=== PATIENT | male | born 1955 | race Caucasian/White ===

== ENCOUNTER → 2021-03-19 | Day surgery (SDC) | payer OTHER ==
[2021-03-17 12:15] LABS: BASOPHILS # (AUTO) 0.1 (0.0-0.1); BASOPHILS % 1.4 % (0.0-1.0); EOSINOPHILS # (AUTO) 0.4 (0.0-0.4); HEMATOCRIT 41.5 % (38.2-49.6); HEMOGLOBIN 13.7 g/dL (14.0-18.0); LYMPHOCYTES # (AUTO) 1.7 (1.0-3.2); LYMPHOCYTES % 22.5 % (18.0-39.1); MEAN CORPUSCULAR HEMOGLOBIN 32.1 pg (28-32); MEAN CORPUSCULAR VOLUME 97.2 fL (81-99); MONOCYTES # (AUTO) 0.6 (0.2-0.8); MONOCYTES % 8.4 % (4.4-11.3); NEUTROPHILS # (AUTO) 4.5 (2.1-6.9); NEUTROPHILS % 61.2 % (38.7-80.0); PLATELET COUNT 209 x10e3/uL (140-360); RED BLOOD COUNT 4.27 x10e6/uL (4.3-5.7); RED CELL DISTRIBUTION WIDTH 13.8 % (11.7-14.4)
[~2021-03-19] MED LIST: ALLOPURINOL; ALLOPURINOL300 MG PO; ASA 81 MG; FENOFIBRATE145 MG PO; FOLIC ACID; FOLIC ACID0.4 MG PO; GEMFIBROZIL600 MG; LOSARTAN POTASS25 MG PO; METFORMIN HCL500 MG; METFORMIN HCL500 MG PO
[2021-03-19 12:35] VITALS: BP 121/71
== END | disposition home or self-care (01) ==
LOC: OR 08:00
PROVIDERS: ATTEND Internal Medicine Gastroenterology
DX: K57.30 Diverticulosis of large intestine without perforation or abscess without bleeding (principal); D12.3 Benign neoplasm of transverse colon; K63.89 Other specified diseases of intestine; K64.8 Other hemorrhoids; E66.01 Morbid (severe) obesity due to excess calories; E11.9 Type 2 diabetes mellitus without complications; I10 Essential (primary) hypertension; M10.9 Gout, unspecified; Z01.810 Encounter for preprocedural cardiovascular examination; Z01.812 Encounter for preprocedural laboratory examination; Z20.822 Contact with and (suspected) exposure to COVID-19; Z79.84 Long term (current) use of oral hypoglycemic drugs; Z68.43 Body mass index [BMI] 50.0-59.9, adult; Z80.0 Family history of malignant neoplasm of digestive organs
CPT/HCPCS: 36415 ×2; 45380; 45381; 82948; 85025; 93005; U0002

== ENCOUNTER → 2021-03-26 | Outpatient (CLI) | payer OTHER ==
[~2021-03-26] MED LIST changes: +DIATRIZOATE MEGL/DIATRIZOA SOD 30 ML BTL PO ONE; +IOPAMIDOL 370 MG/ML 200 ML INFUS..BTL INJ ONE; +SODIUM CHLORIDE 0.9% 50ML 50 ML ONE
[2021-03-26 10:52] LABS: CREATININE, SERUM 0.84 mg/dL (0.72-1.25)
== END ==
LOC: CT 09:19
PROVIDERS: ATTEND Internal Medicine Gastroenterology
DX: C18.9 Malignant neoplasm of colon, unspecified (principal); E11.9 Type 2 diabetes mellitus without complications; K57.30 Diverticulosis of large intestine without perforation or abscess without bleeding
CPT/HCPCS: 36415; 74177; 82565; 84520; Q9967

== ENCOUNTER → 2021-04-08 | Outpatient (CLI) | payer OTHER ==
[~2021-04-08] MED LIST changes: -DIATRIZOATE MEGL/DIATRIZOA SOD 30 ML BTL PO ONE
[2021-04-08 12:42] LABS: CREATININE, SERUM 1.06 mg/dL (0.72-1.25)
== END ==
LOC: CT 11:34
PROVIDERS: ATTEND Internal Medicine Hematology & Oncology
DX: R06.02 Shortness of breath (principal); R91.8 Other nonspecific abnormal finding of lung field
CPT/HCPCS: 36415; 71260; 82565; 84520; Q9967

== ENCOUNTER 2021-04-28 09:37 | Inpatient (IN) | payer OTHER ==
[~2021-04-28] VITALS: Ht 183.5 cm; Wt 184.6 kg
[2021-04-28] VITALS (12 sets, daily range): BP systolic 99–144; BP diastolic 52–84
[~2021-04-28 09:37] MED LIST changes: -IOPAMIDOL 370 MG/ML 200 ML INFUS..BTL INJ ONE; -SODIUM CHLORIDE 0.9% 50ML 50 ML ONE
[2021-04-28] MEDS ORDERED: MIDAZOLAM HCL 2 MG/2 ML VIAL ONE (11:25)
[2021-04-28] MEDS ORDERED: IOPAMIDOL 370 MG/ML 200 ML INFUS..BTL INJ ONE (11:26)
[2021-04-28] MEDS ORDERED: SODIUM CHLORIDE 0.9% 1000ML 1,000 ML ONE (11:26)
[2021-04-28] MEDS ORDERED: HEPARIN SOD/SOD CHLORIDE 1,000 ML ONE (11:26)
[2021-04-28] MEDS ORDERED: FENTANYL CITRATE/PF 100MCG/2 ML INJ ONE (11:26)
[2021-04-28] MEDS ORDERED: LIDOCAINE HCL 2% LOCAL 20 ML VIAL ONE (11:26)
[2021-04-28 11:39] LABS: BASOPHILS # (AUTO) 0.1 (0.0-0.1); BASOPHILS % 1.1 % (0.0-1.0); EOSINOPHILS # (AUTO) 0.3 (0.0-0.4); EOSINOPHILS % 3.9 % (0.0-6.0); HEMATOCRIT 41.8 % (38.2-49.6); HEMOGLOBIN 13.7 g/dL (14.0-18.0); LYMPHOCYTES # (AUTO) 1.7 (1.0-3.2); MEAN CORPUSCULAR HEMOGLOBIN 31.9 pg (28-32); MEAN CORPUSCULAR HGB CONC 32.8 g/dL (31-35); MEAN CORPUSCULAR VOLUME 97.2 fL (81-99); MONOCYTES # (AUTO) 0.8 (0.2-0.8); MONOCYTES % 10.4 % (4.4-11.3); NEUTROPHILS # (AUTO) 4.4 (2.1-6.9); NEUTROPHILS % 61.2 % (38.7-80.0); PLATELET COUNT 211 x10e3/uL (140-360); RED CELL DISTRIBUTION WIDTH 13.4 % (11.7-14.4)
[2021-04-28 11:48] LABS: INR 0.92; PARTIAL THROMBOPLASTIN TIME 25.8 seconds (23.8-35.5); PROTHROMBIN TIME 13.1 seconds (11.9-14.5)
[2021-04-28 11:54] LABS: ANION GAP 15.4 mmol/L (8-16); CALCIUM 9.4 mg/dL (8.4-10.2); CREATININE, SERUM 1.01 mg/dL (0.72-1.25); POTASSIUM 4.4 mmol/L (3.5-5.1)
[2021-04-28] MEDS ORDERED: SODIUM CHLORIDE 0.9% 1000ML 1,000 ML IV SCH (12:15)
[2021-04-28] MEDS: DEXTROSE 5%/0.9% SOD CHL 1,000 ML IV SCH (12:31)
[2021-04-28] MEDS ORDERED: ATORVASTATIN CA10 MG PO (16:10)
[2021-04-28] MEDS ORDERED: XARELTO20 MG PO (16:10)
[2021-04-28] MEDS ORDERED: PANTOPRAZOLE SO40 MG PO (16:10)
[2021-04-28] MEDS ORDERED: FOLIC ACID0.4 MG PO (16:11)
[2021-04-28] MEDS: ATORVASTATIN 10 MG TAB PO SCH (20:37)
[2021-04-28] MEDS: MAGNESIUM HYDROXIDE 30 ML UDC PO SCH (20:37)
[2021-04-29] VITALS (8 sets, daily range): BP systolic 105–143; BP diastolic 47–76
[2021-04-29] MEDS: DEXTROSE 5%/0.9% SOD CHL 1,000 ML IV SCH ×2 (01:43→15:15)
[2021-04-29] MEDS ORDERED: ALLOPURINOL 300 MG TAB PO SCH (09:00)
[2021-04-29] MEDS ORDERED: FOLIC ACID 1 MG TAB PO SCH (09:00)
[2021-04-29] MEDS ORDERED: LOSARTAN POTASSIUM 25 MG TAB PO SCH (09:00)
[2021-04-29] MEDS ORDERED: FOLIC ACID 0.4 MG PO SCH (09:00)
[2021-04-29] MEDS ORDERED: FENOFIBRATE 134 MG TAB PO SCH (09:00)
[2021-04-29] MEDS: ERYTHROMYCIN 500 MG TAB PO SCH ×3 (12:38→22:44)
[2021-04-29] MEDS: NEOMYCIN SULFATE 500 MG TAB PO SCH ×3 (12:38→22:44)
[2021-04-29] MEDS ORDERED: ENOXAPARIN SODIUM INJ 100 MG/ML SYR SC ONE (13:45)
[2021-04-29] MEDS: MAGNESIUM HYDROXIDE 30 ML UDC PO SCH (20:51)
[2021-04-29] MEDS: ATORVASTATIN 10 MG TAB PO SCH (20:51)
[2021-04-30] VITALS (9 sets, daily range): BP systolic 119–160; BP diastolic 69–96
[2021-04-30] MEDS: DEXTROSE 5%/0.9% SOD CHL 1,000 ML IV SCH (05:08)
[2021-04-30] MEDS ORDERED: MIDAZOLAM HCL 2 MG/2 ML VIAL ONE (12:17)
[2021-04-30] MEDS ORDERED: FENTANYL CITRATE/PF 100MCG/2 ML INJ ONE (12:17)
[2021-04-30] MEDS ORDERED: ACETAMINOPHEN 1000 MG/100 ML 100 ML IV ONE (13:50)
[2021-04-30] MEDS ORDERED: ACETAMINOPHEN 1000 MG/100 ML IV PRN (16:30)
[2021-04-30] MEDS ORDERED: NALOXONE HCL INJ 0.4 MG/ML AMP IV PRN (16:30)
[2021-04-30] MEDS ORDERED: ONDANSETRON HCL INJ 2MG/ML 2ML 2 MG/ML VIAL IV PRN (16:30)
[2021-04-30] MEDS ORDERED: HYDROMORPHONE 0.2MG/ML-SOD CHL 30ML PCA SYRINGE IV PRN (16:30)
[2021-04-30] MEDS ORDERED: DEXTROSE 50% SYRINGE 50 ML IV PRN (16:45)
[2021-04-30] MEDS: INSULIN REGULAR, HUMAN 100 UNIT/1 ML SQ SCH (18:00)
[2021-04-30] MEDS: SODIUM CHLORIDE 0.9% 250ML IRRIG IR SCH ×2 (18:02→20:30)
[2021-04-30] MEDS: SODIUM CHLORIDE 0.9% 1000ML 1,000 ML IV SCH ×2 (18:02→23:10)
[2021-04-30] MEDS: CEFTRIAXONE 2 GM in SODIUM CHLORIDE 0.9% 100 ML IV SCH (18:02)
[2021-04-30] MEDS: ENOXAPARIN SOD INJ 40 MG/0.4 ML SYR SC SCH (18:04)
[2021-05-01] VITALS (24 sets, daily range): BP systolic 110–161; BP diastolic 69–93
[2021-05-01] MEDS: SODIUM CHLORIDE 0.9% 250ML IRRIG IR SCH ×6 (00:30→20:01)
[2021-05-01 04:59] LABS: BASOPHILS % 0.3 % (0.0-1.0); EOSINOPHILS # (AUTO) 0.1 (0.0-0.4); EOSINOPHILS % 0.7 % (0.0-6.0); HEMATOCRIT 38.7 % (38.2-49.6); HEMOGLOBIN 12.7 g/dL (14.0-18.0); LYMPHOCYTES # (AUTO) 1.2 (1.0-3.2); LYMPHOCYTES % 12.7 % (18.0-39.1); MEAN CORPUSCULAR HEMOGLOBIN 31.8 pg (28-32); MEAN CORPUSCULAR HGB CONC 32.8 g/dL (31-35); MONOCYTES # (AUTO) 0.9 (0.2-0.8); MONOCYTES % 9.5 % (4.4-11.3); NEUTROPHILS # (AUTO) 7.4 (2.1-6.9); NEUTROPHILS % 76.4 % (38.7-80.0); PLATELET COUNT 190 x10e3/uL (140-360); RED BLOOD COUNT 3.99 x10e6/uL (4.3-5.7); RED CELL DISTRIBUTION WIDTH 13.2 % (11.7-14.4)
[2021-05-01 05:26] LABS: ANION GAP 14.4 mmol/L (8-16); CALCIUM 8.6 mg/dL (8.4-10.2); CREATININE, SERUM 0.98 mg/dL (0.72-1.25); POTASSIUM 4.4 mmol/L (3.5-5.1)
[2021-05-01] MEDS: SODIUM CHLORIDE 0.9% 1000ML 1,000 ML IV SCH ×3 (05:47→20:01)
[2021-05-01] MEDS: INSULIN REGULAR, HUMAN 100 UNIT/1 ML SQ SCH ×5 (05:48→23:20)
[2021-05-01] MEDS ORDERED: SEVOFLURANE INHAL SOLN 250 ML PEN BTL ONE (18:34)
[2021-05-01] MEDS ORDERED: LIDOCAINE HCL 2% LOCAL INJ 5 ML SDV VIAL INJ ONE (18:34)
[2021-05-01] MEDS ORDERED: ROCURONIUM BROMIDE 10 MG/ML 5ML VIAL IV ONE (18:34)
[2021-05-01] MEDS ORDERED: POVIDONE IODINE 0.05% 0.05 % ML PO ONE (18:34)
[2021-05-01] MEDS ORDERED: PROPOFOL IV EMULSION 10 MG/ML 20 ML VIAL ONE (18:34)
[2021-05-01] MEDS ORDERED: ONDANSETRON HCL INJ 2MG/ML 2ML 2 MG/ML VIAL ONE (18:34)
[2021-05-01] MEDS: CEFTRIAXONE 2 GM in SODIUM CHLORIDE 0.9% 100 ML IV SCH (18:40)
[2021-05-02] VITALS (14 sets, daily range): BP systolic 111–166; BP diastolic 58–85
[2021-05-02] MEDS: SODIUM CHLORIDE 0.9% 1000ML 1,000 ML IV SCH ×3 (02:51→15:02)
[2021-05-02 04:59] LABS: BASOPHILS # (AUTO) 0.1 (0.0-0.1); BASOPHILS % 0.6 % (0.0-1.0); EOSINOPHILS # (AUTO) 0.2 (0.0-0.4); EOSINOPHILS % 2.8 % (0.0-6.0); HEMATOCRIT 36.5 % (38.2-49.6); HEMOGLOBIN 11.6 g/dL (14.0-18.0); LYMPHOCYTES # (AUTO) 1.3 (1.0-3.2); LYMPHOCYTES % 14.7 % (18.0-39.1); MEAN CORPUSCULAR HEMOGLOBIN 32.1 pg (28-32); MEAN CORPUSCULAR HGB CONC 31.8 g/dL (31-35); MEAN CORPUSCULAR VOLUME 101.1 fL (81-99); MONOCYTES # (AUTO) 0.9 (0.2-0.8); MONOCYTES % 10.3 % (4.4-11.3); NEUTROPHILS # (AUTO) 6.2 (2.1-6.9); NEUTROPHILS % 71.3 % (38.7-80.0); PLATELET COUNT 178 x10e3/uL (140-360); RED BLOOD COUNT 3.61 x10e6/uL (4.3-5.7); RED CELL DISTRIBUTION WIDTH 13.6 % (11.7-14.4)
[2021-05-02 05:20] LABS: CALCIUM 8.4 mg/dL (8.4-10.2); CREATININE, SERUM 0.95 mg/dL (0.72-1.25)
[2021-05-02] MEDS: INSULIN REGULAR, HUMAN 100 UNIT/1 ML SQ SCH ×3 (06:00→18:00)
[2021-05-02] MEDS ORDERED: HYDROMORPHONE 0.2MG/ML-SOD CHL 30ML PCA SYRINGE IV PRN (14:00)
[2021-05-02] MEDS: ENOXAPARIN SOD INJ 40 MG/0.4 ML SYR SC SCH (16:26)
[2021-05-02] MEDS: CEFTRIAXONE 2 GM in SODIUM CHLORIDE 0.9% 100 ML IV SCH (17:20)
[2021-05-02] MEDS ORDERED: BISACODYL 10 MG SUPP PR ONE (20:30)
[2021-05-02] MEDS: BISACODYL 10 MG SUPP PR SCH (21:00)
[2021-05-03] MEDS: SODIUM CHLORIDE 0.9% 1000ML 1,000 ML IV SCH ×3 (02:28→18:17)
[2021-05-03 04:00] VITALS: BP 108/62
[2021-05-03 05:47] LABS: BASOPHILS # (AUTO) 0.1 (0.0-0.1); BASOPHILS % 0.7 % (0.0-1.0); EOSINOPHILS # (AUTO) 0.3 (0.0-0.4); HEMATOCRIT 32.4 % (38.2-49.6); HEMOGLOBIN 10.3 g/dL (14.0-18.0); LYMPHOCYTES # (AUTO) 1.2 (1.0-3.2); LYMPHOCYTES % 15.1 % (18.0-39.1); MEAN CORPUSCULAR HEMOGLOBIN 32.1 pg (28-32); MEAN CORPUSCULAR HGB CONC 31.8 g/dL (31-35); MEAN CORPUSCULAR VOLUME 100.9 fL (81-99); MONOCYTES # (AUTO) 0.7 (0.2-0.8); MONOCYTES % 8.9 % (4.4-11.3); NEUTROPHILS # (AUTO) 5.4 (2.1-6.9); NEUTROPHILS % 70.9 % (38.7-80.0); PLATELET COUNT 160 x10e3/uL (140-360); RED BLOOD COUNT 3.21 x10e6/uL (4.3-5.7); RED CELL DISTRIBUTION WIDTH 13.3 % (11.7-14.4)
[2021-05-03] MEDS: INSULIN REGULAR, HUMAN 100 UNIT/1 ML SQ SCH ×4 (06:00→18:00)
[2021-05-03 06:02] LABS: ANION GAP 13.6 mmol/L (8-16); CALCIUM 8.5 mg/dL (8.4-10.2); CREATININE, SERUM 0.81 mg/dL (0.72-1.25); POTASSIUM 3.6 mmol/L (3.5-5.1)
[2021-05-03 08:50] VITALS: BP 107/63
[2021-05-03] MEDS: BISACODYL 10 MG SUPP PR SCH (09:00)
[2021-05-03 09:37] VITALS: BP 107/63
[2021-05-03 13:03] VITALS: BP 130/81
[2021-05-03] MEDS: ENOXAPARIN SOD INJ 40 MG/0.4 ML SYR SC SCH (17:00)
[2021-05-03 17:03] VITALS: BP 105/89
[2021-05-03] MEDS: CEFTRIAXONE 2 GM in SODIUM CHLORIDE 0.9% 100 ML IV SCH (18:00)
[2021-05-03 20:25] VITALS: BP 127/81
[2021-05-04 00:25] VITALS: BP 146/63
[2021-05-04] MEDS: SODIUM CHLORIDE 0.9% 1000ML 1,000 ML IV SCH ×3 (00:45→20:32)
[2021-05-04 03:55] VITALS: BP 137/76
[2021-05-04] MEDS: INSULIN REGULAR, HUMAN 100 UNIT/1 ML SQ SCH ×5 (05:51→20:31)
[2021-05-04] MEDS ORDERED: BISACODYL 10 MG SUPP PR ONE (06:00)
[2021-05-04 07:54] VITALS: BP 147/89
[2021-05-04 09:00] VITALS: BP 147/89
[2021-05-04] MEDS ORDERED: HYDROMORPHONE 1MG/1ML INJ IV PRN (10:30)
[2021-05-04] MEDS ORDERED: HYDROCODONE/APAP 7.5MG-325MG 1 EA TAB PO PRN (10:30)
[2021-05-04] MEDS ORDERED: POTASSIUM CHLORIDE 20 MEQ TAB CR PO ONE ×2 (10:45→14:45)
[2021-05-04 11:52] VITALS: BP 154/85
[2021-05-04 13:08] LABS: INR 0.96; PROTHROMBIN TIME 13.5 seconds (11.9-14.5)
[2021-05-04 15:52] VITALS: BP 130/63
[2021-05-04] MEDS: ENOXAPARIN SOD INJ 40 MG/0.4 ML SYR SC SCH (17:17)
[2021-05-04] MEDS: WARFARIN SOD 5 MG TAB PO SCH (17:17)
[2021-05-04] MEDS: CEFTRIAXONE 2 GM in SODIUM CHLORIDE 0.9% 100 ML IV SCH (17:17)
[2021-05-05] VITALS (7 sets, daily range): BP systolic 119–156; BP diastolic 65–97
[2021-05-05 05:36] LABS: BASOPHILS # (AUTO) 0.1 (0.0-0.1); BASOPHILS % 0.9 % (0.0-1.0); EOSINOPHILS # (AUTO) 0.4 (0.0-0.4); EOSINOPHILS % 6.8 % (0.0-6.0); HEMATOCRIT 31.4 % (38.2-49.6); HEMOGLOBIN 10.3 g/dL (14.0-18.0); LYMPHOCYTES # (AUTO) 1.1 (1.0-3.2); LYMPHOCYTES % 19.5 % (18.0-39.1); MEAN CORPUSCULAR HEMOGLOBIN 31.9 pg (28-32); MEAN CORPUSCULAR HGB CONC 32.8 g/dL (31-35); MEAN CORPUSCULAR VOLUME 97.2 fL (81-99); MONOCYTES # (AUTO) 0.5 (0.2-0.8); MONOCYTES % 8.8 % (4.4-11.3); NEUTROPHILS # (AUTO) 3.6 (2.1-6.9); NEUTROPHILS % 63.6 % (38.7-80.0); PLATELET COUNT 172 x10e3/uL (140-360); RED BLOOD COUNT 3.23 x10e6/uL (4.3-5.7); RED CELL DISTRIBUTION WIDTH 13.2 % (11.7-14.4)
[2021-05-05 05:44] LABS: INR 0.97; PROTHROMBIN TIME 13.7 seconds (11.9-14.5)
[2021-05-05 05:51] LABS: ALBUMIN 2.7 g/dL (3.5-5.0); ALBUMIN/GLOBULIN RATIO 0.9 (0.8-2.0); ANION GAP 13.4 mmol/L (8-16); CALCIUM 8.4 mg/dL (8.4-10.2); CREATININE, SERUM 0.75 mg/dL (0.72-1.25); POTASSIUM 3.4 mmol/L (3.5-5.1)
[2021-05-05] MEDS: INSULIN REGULAR, HUMAN 100 UNIT/1 ML SQ SCH ×4 (07:30→21:00)
[2021-05-05] MEDS ORDERED: RIVAROXABAN 20 MG TABLET PO SCH (09:00)
[2021-05-05] MEDS ORDERED: ONDANSETRON HCL 4 MG ORAL DISINTEGRATING TAB PO PRN (09:45)
[2021-05-05] MEDS: SODIUM CHLORIDE 0.9% 1000ML 1,000 ML IV SCH (11:04)
[2021-05-05] MEDS ORDERED: ENOXAPARIN SOD INJ 40 MG/0.4 ML SYR SC SCH (17:00)
[2021-05-05] MEDS: WARFARIN SOD 5 MG TAB PO SCH (17:52)
[2021-05-05] MEDS: CEFTRIAXONE 2 GM in SODIUM CHLORIDE 0.9% 100 ML IV SCH (18:03)
[2021-05-06] VITALS: BP 140/72
[2021-05-06 04:00] VITALS: BP 136/50
[2021-05-06] MEDS: SODIUM CHLORIDE 0.9% 1000ML 1,000 ML IV SCH (04:56)
[2021-05-06 05:31] LABS: INR 0.93; PROTHROMBIN TIME 13.2 seconds (11.9-14.5)
[2021-05-06] MEDS: INSULIN REGULAR, HUMAN 100 UNIT/1 ML SQ SCH ×2 (07:30→11:30)
[2021-05-06 08:25] VITALS: BP 189/87
[2021-05-06] MEDS ORDERED: ENOXAPARIN SOD INJ 40 MG/0.4 ML SYR SC SCH (09:00)
[2021-05-06 12:22] VITALS: BP 96/69
[2021-05-06 12:23] VITALS: BP 167/95
[2021-05-06] MEDS ORDERED: Warfarin Sod PO (14:45)
[2021-05-06] MEDS ORDERED: ENOXAPARIN80 MG/0.8 SC (14:45)
[2021-05-06 15:47] VITALS: BP 153/84
[2021-05-06] MEDS ORDERED: PANTOPRAZOLE SOD 40 MG TABEC PO SCH (16:30)
== END 2021-05-06 16:11 | disposition home or self-care (01) | DRG 329 ==
LOC: MED/SURG 10:27 → ICU 04-30 15:53 → MED/SURG 05-02 16:57
PROVIDERS: ADMIT Internal Medicine Pulmonary Disease; ATTEND Internal Medicine Pulmonary Disease
PROC: 06H03DZ Insertion of Intraluminal Device into Inferior Vena Cava, Percutaneous Approach (ICD-10-PCS; principal; 2021-04-28)
PROC: 0DTN0ZZ Resection of Sigmoid Colon, Open Approach (ICD-10-PCS; 2021-04-30)
PROC: 0DBP0ZZ Excision of Rectum, Open Approach (ICD-10-PCS; 2021-04-30)
DX: C18.7 Malignant neoplasm of sigmoid colon (principal); I26.99 Other pulmonary embolism without acute cor pulmonale; Z68.43 Body mass index [BMI] 50.0-59.9, adult; D68.69 Other thrombophilia; I10 Essential (primary) hypertension; E78.2 Mixed hyperlipidemia; E11.9 Type 2 diabetes mellitus without complications; E66.01 Morbid (severe) obesity due to excess calories; E74.39 Other disorders of intestinal carbohydrate absorption; Z86.718 Personal history of other venous thrombosis and embolism; Z80.0 Family history of malignant neoplasm of digestive organs; Z79.01 Long term (current) use of anticoagulants; Z72.0 Tobacco use; Z15.09 Genetic susceptibility to other malignant neoplasm; Z20.822 Contact with and (suspected) exposure to COVID-19
CPT/HCPCS: 36415; 37191; 71045; 76937; 80048; 80053; 82378; 82948; 85025; 85610; 85730; 86850; 86900; 88309; 88342; 93005; 93306; 94799; 97139; 99152; C1760; C1769; C1880; C1894; J0694; J0696; J1650; J1817; J2001; J2250; J2405; J3010; J7030; J7042; J7050; Q9967; U0002

== ENCOUNTER → 2022-08-26 | Day surgery (SDC) | payer OTHER ==
[2022-08-21 12:25] LABS: BASOPHILS # (AUTO) 0.1 (0.0-0.1); BASOPHILS % 1.2 % (0.0-1.0); EOSINOPHILS # (AUTO) 0.3 (0.0-0.4); EOSINOPHILS % 4.4 % (0.0-6.0); HEMATOCRIT 41.3 % (38.2-49.6); HEMOGLOBIN 13.4 g/dL (14.0-18.0); LYMPHOCYTES % 29.5 % (18.0-39.1); MEAN CORPUSCULAR HEMOGLOBIN 31.8 pg (28-32); MEAN CORPUSCULAR HGB CONC 32.4 g/dL (31-35); MEAN CORPUSCULAR VOLUME 98.1 fL (81-99); MONOCYTES # (AUTO) 0.7 (0.2-0.8); MONOCYTES % 9.6 % (4.4-11.3); NEUTROPHILS # (AUTO) 3.7 (2.1-6.9); NEUTROPHILS % 54.6 % (38.7-80.0); PLATELET COUNT 209 x10e3/uL (140-360); RED BLOOD COUNT 4.21 x10e6/uL (4.3-5.7); RED CELL DISTRIBUTION WIDTH 13.5 % (11.7-14.4)
[~2022-08-26] MED LIST changes: +ATORVASTATIN CA10 MG PO; +ENOXAPARIN80 MG/0.8 SC; +GLYCOPYRROLATE INJ 0.2 MG/ML VIAL ONE; +LACTATED RINGER'S 1,000 ML ONE; +LIDOCAINE HCL 2% LOCAL INJ 5 ML SDV VIAL INJ ONE; +PANTOPRAZOLE SO40 MG PO; +POVIDONE IODINE 0.05% 0.05 % ML PO ONE; +PROPOFOL IV EMULSION 10 MG/ML 20 ML VIAL ONE; +PROPOFOL IV EMULSION 50 ML IV ONE; +Warfarin Sod PO; +XARELTO20 MG PO
[2022-08-26 10:16] LABS: INR 0.99; PROTHROMBIN TIME 13.6 seconds (11.9-14.5)
[2022-08-26 10:17] LABS: PARTIAL THROMBOPLASTIN TIME 26.2 seconds (23.8-35.5)
[2022-08-26 12:25] VITALS: BP 118/73
== END | disposition home or self-care (01) ==
LOC: OR 08:51
PROVIDERS: ATTEND Internal Medicine Gastroenterology
DX: K57.30 Diverticulosis of large intestine without perforation or abscess without bleeding (principal); Z85.038 Personal history of other malignant neoplasm of large intestine; D12.3 Benign neoplasm of transverse colon; K64.8 Other hemorrhoids; E11.9 Type 2 diabetes mellitus without complications; E66.01 Morbid (severe) obesity due to excess calories; K76.0 Fatty (change of) liver, not elsewhere classified; M10.9 Gout, unspecified; E78.00 Pure hypercholesterolemia, unspecified; Z01.810 Encounter for preprocedural cardiovascular examination; Z01.812 Encounter for preprocedural laboratory examination; Z79.84 Long term (current) use of oral hypoglycemic drugs; Z79.01 Long term (current) use of anticoagulants; Z79.899 Other long term (current) drug therapy; Z80.0 Family history of malignant neoplasm of digestive organs
CPT/HCPCS: 36415 ×2; 45380; 45385; 82948; 85025; 85610; 85730; 88305; 93005; J2001; J2704 ×2; J7121; 45384; 88304

== ENCOUNTER → 2024-08-18 | Outpatient (REF) | payer MEDICARE ==
[~2024-08-18] MED LIST changes: +ALLERGY MEDICAT25 MG PO; +ENOXAPARIN120 MG/0.8; -GLYCOPYRROLATE INJ 0.2 MG/ML VIAL ONE; -LACTATED RINGER'S 1,000 ML ONE; -LIDOCAINE HCL 2% LOCAL INJ 5 ML SDV VIAL INJ ONE; +OZEMPIC1 MG/0.71; -POVIDONE IODINE 0.05% 0.05 % ML PO ONE; -PROPOFOL IV EMULSION 10 MG/ML 20 ML VIAL ONE; -PROPOFOL IV EMULSION 50 ML IV ONE; +WARFARIN SODIUM3 MG PO
== END ==
LOC: RAD 10:17
PROVIDERS: ATTEND Anesthesiology
DX: Z01.810 Encounter for preprocedural cardiovascular examination (principal)
CPT/HCPCS: 93306

== ENCOUNTER → 2024-08-23 | Day surgery (SDC) | payer MEDICARE ==
[2024-08-18 10:07] LABS: BASOPHILS # (AUTO) 0.1 (0.0-0.1); EOSINOPHILS # (AUTO) 0.4 (0.0-0.4); EOSINOPHILS % 5.5 % (0.0-6.0); HEMATOCRIT 41.2 % (38.2-49.6); HEMOGLOBIN 13.9 g/dL (14.0-18.0); LYMPHOCYTES # (AUTO) 2.1 (1.0-3.2); MEAN CORPUSCULAR HEMOGLOBIN 32.3 pg (28-32); MEAN CORPUSCULAR HGB CONC 33.7 g/dL (31-35); MEAN CORPUSCULAR VOLUME 95.8 fL (81-99); MONOCYTES # (AUTO) 0.7 (0.2-0.8); MONOCYTES % 10.2 % (4.4-11.3); NEUTROPHILS # (AUTO) 3.7 (2.1-6.9); NEUTROPHILS % 52.9 % (38.7-80.0); PLATELET COUNT 240 x10e3/uL (140-360); RED CELL DISTRIBUTION WIDTH 13.7 % (11.7-14.4); WHITE BLOOD COUNT 7.07 x10e3/uL (4.8-10.8)
[~2024-08-23] MED LIST changes: +BENZOCAINE/TETRACAINE/BUTAMBEN AERO SPRAY 56 GM CAN ONE; +FENTANYL CITRATE/PF 100MCG/2 ML INJ ONE; +LACTATED RINGER'S 1,000 ML ONE; +LIDOCAINE HCL 2% LOCAL INJ 5 ML SDV VIAL INJ ONE; +MIDAZOLAM HCL 2 MG/2 ML VIAL ONE; +PROPOFOL IV EMULSION 10 MG/ML 20 ML VIAL ONE; +PROPOFOL IV EMULSION 50 ML IV ONE
[2024-08-23 10:01] LABS: INR 0.95; PROTHROMBIN TIME 13.3 seconds (11.9-14.5)
[2024-08-23 10:02] LABS: PARTIAL THROMBOPLASTIN TIME 28.7 seconds (23.8-35.5)
[2024-08-23 10:55] VITALS: PULSE 82; RESP 18; O2SAT 96
[2024-08-23 11:49] VITALS: TEMP 98
[2024-08-23 12:20] VITALS: BP 111/67
[2024-08-23 14:08] VITALS: PULSE 71; RESP 16; O2SAT 96
[2024-08-23] MEDS: ALBUTEROL/IPRATROPIUM 3 ML NEB NEB ONE (14:08)
== END | disposition home or self-care (01) ==
LOC: OR 08:36
PROVIDERS: ATTEND Internal Medicine Gastroenterology
DX: K21.9 Gastro-esophageal reflux disease without esophagitis (principal); D12.8 Benign neoplasm of rectum; Z85.038 Personal history of other malignant neoplasm of large intestine; K29.50 Unspecified chronic gastritis without bleeding; K44.9 Diaphragmatic hernia without obstruction or gangrene; Z71.3 Dietary counseling and surveillance; K76.0 Fatty (change of) liver, not elsewhere classified; I10 Essential (primary) hypertension; I25.10 Atherosclerotic heart disease of native coronary artery without angina pectoris; E11.9 Type 2 diabetes mellitus without complications; E66.01 Morbid (severe) obesity due to excess calories; Z78.9 Other specified health status; F17.220 Nicotine dependence, chewing tobacco, uncomplicated; Z01.810 Encounter for preprocedural cardiovascular examination; Z01.812 Encounter for preprocedural laboratory examination; Z79.01 Long term (current) use of anticoagulants; Z79.85 Long-term (current) use of injectable non-insulin antidiabetic drugs; Z79.899 Other long term (current) drug therapy; Z86.711 Personal history of pulmonary embolism; Z80.0 Family history of malignant neoplasm of digestive organs
CPT/HCPCS: 36415 ×2; 43239; 45385; 82948; 85025; 85610; 85730; 88305; 88342; 93005; 94799; J2003; J2250; J2704 ×2; J3010; J7121; 45378

== ENCOUNTER 2025-02-01 19:17 | Emergency (ER) | payer MEDICARE ==
[~2025-02-01] VITALS: Ht 193 cm; Wt 188.2 kg
[~2025-02-01 19:17] MED LIST changes: -BENZOCAINE/TETRACAINE/BUTAMBEN AERO SPRAY 56 GM CAN ONE; -FENTANYL CITRATE/PF 100MCG/2 ML INJ ONE; -LACTATED RINGER'S 1,000 ML ONE; -LIDOCAINE HCL 2% LOCAL INJ 5 ML SDV VIAL INJ ONE; -MIDAZOLAM HCL 2 MG/2 ML VIAL ONE; -PROPOFOL IV EMULSION 10 MG/ML 20 ML VIAL ONE; -PROPOFOL IV EMULSION 50 ML IV ONE
[2025-02-01 20:20] VITALS: TEMP 98.1
[2025-02-01 20:37] LABS: BASOPHILS % 0.6 % (0.0-1.0); EOSINOPHILS % 2.0 % (0.0-6.0); LYMPHOCYTES % 12.9 % (18.0-39.1); MONOCYTES % 7.0 % (4.4-11.3); NEUTROPHILS % 77.2 % (38.7-80.0); RED CELL DISTRIBUTION WIDTH 13.9 % (11.7-14.4)
[2025-02-01 20:43] LABS: LEUKOCYTE ESTERASE ,URINE LARGE (NEGATIVE); PROTEIN,URINE DIPSTICK >=300 (NEGATIVE)
[2025-02-01 20:44] LABS: URINE UROBILINOGEN >=8 mg/dL (0.2 - 1)
[2025-02-01 20:56] LABS: EST GLOMERULAR FILTRATION RATE 81.0 ML/MIN (>=60)
[2025-02-01] MEDS ORDERED: IOPAMIDOL 370 MG/ML 100 ML INFUS..BTL INJ ONE (21:12)
[2025-02-01] MEDS ORDERED: CIPRO500 MG PO (23:48)
[2025-02-02 00:23] VITALS: PULSE 71; RESP 16; O2SAT 97
== END 2025-02-02 00:25 | disposition home or self-care (01) ==
LOC: ER 19:22
DX: N30.91 Cystitis, unspecified with hematuria (principal); I10 Essential (primary) hypertension; E11.9 Type 2 diabetes mellitus without complications; I25.10 Atherosclerotic heart disease of native coronary artery without angina pectoris; R91.8 Other nonspecific abnormal finding of lung field; E78.5 Hyperlipidemia, unspecified; K21.9 Gastro-esophageal reflux disease without esophagitis; Z86.711 Personal history of pulmonary embolism
CPT/HCPCS: 36415; 74177; 80053; 81001; 83690; 85025; 87086; 87186; 99284; Q9967